=== PATIENT | female | born 1995 | race American Indian/Alaskan Native ===

== ENCOUNTER 2017-12-24 11:36 | Emergency (ER) | payer OTHER ==
[2017-12-24] MEDS ORDERED: TYLENOL PO ONE (12:21)
[2017-12-24] MEDS ORDERED: TYLENOL ONE (12:22)
[2017-12-24 13:02] LABS: Basophils % (Auto) 0.2 % (0.0-1.8); Eosinophils % (Auto) 0.1 % (0.0-4.3); Hematocrit 32.8 % (30.3-42.9); Hemoglobin 10.9 gm/dl (10.1-14.3); Lymphocytes % (Auto) 6.9 % (13.4-35.0); Mean Corpuscular HGB Conc 33 % (30-34); Mean Corpuscular Hemoglobin 29 pg (28-32); Mean Corpuscular Volume 88 fl (79-97); Monocytes # (Auto) 1.9 K/mm3 (0.0-0.8); Monocytes % (Auto) 12.9 % (0.0-7.3); Platelet Count 286 K/mm3 (140-440); Red Blood Count 3.75 M/mm3 (3.65-5.03); Red Cell Distribution Width 14.3 % (13.2-15.2)
[2017-12-24 13:05] LABS: Bacteria,Urine 1+ /HPF (Negative); Bilirubin,Urine NEG (Negative); Blood,Urine LG (Negative); Color,Urine Yellow (Yellow); Mucus,Urine FEW /HPF
[2017-12-24 13:06] LABS: WBC,Urine > 182.0 /HPF (0.0-6.0)
[2017-12-24 13:17] LABS: Alanine Aminotransferase 11 units/L (7-56); Albumin 3.5 g/dL (3.9-5); BUN/Creatinine Ratio 6; Blood Urea Nitrogen 5 mg/dL (7-17); Calcium 8.6 mg/dL (8.4-10.2); Hemolysis Index 6
[2017-12-24 21:24] VITALS: BP 105/66
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
[2017-12-24] MEDS ORDERED: BACTRIM DS PO ONE (22:14)
== END 2017-12-24 22:47 | disposition home or self-care (01) ==
LOC: ED 11:36
DX: N30.00 Acute cystitis without hematuria (principal)
CPT/HCPCS: 36415; 80053; 81001; 85025; 99283

== ENCOUNTER 2020-07-09 00:56 | Emergency (ER) | payer MEDICAID | END 2020-07-09 01:30 | disposition left against medical advice (07) | LOC: ED 00:56 | DX: R11.2 Nausea with vomiting, unspecified (principal); Z53.21 Procedure and treatment not carried out due to patient leaving prior to being seen by health care provider ==